=== PATIENT | female | born 1955 | race Caucasian/White ===

== ENCOUNTER 2019-01-11 08:17 | Day surgery (SDC) | payer OTHER ==
--- NOTE | 2019-01-04 10:37 | RAD REPORT ---
EXAM DESCRIPTION: RAD - Chest Pa And Lat (2 Views) - 01/04/2019 10:24 am CLINICAL HISTORY: preop Chest pain. COMPARISON: CHEST PA AND LAT 2 VIEW dated 08/26/2015; CHEST PA AND LAT 2 VIEW dated 06/29/2008; CHEST SINGLE VIEW dated 01/02/2008 FINDINGS: Prominent emphysema is present. No focal infiltrate is seen. The heart is normal in size. No displaced fractures. Moderate S-shaped scoliosis of the thoracolumbar spine. IMPRESSION: Prominent COPD.
[2019-01-04 11:20] LABS: BUN Blood Urea Nitrogen 9 mg/dL (7-18); Bicarbonate 31 mmol/L (21-32); Glucose Level 89 mg/dL (74-106); Potassium 4.1 mmol/L (3.5-5.1); Sodium Level 139 mmol/L (136-145)
[2019-01-04 11:28] LABS: Absolute Lymphocytes (CBC) 2.6 K/uL (0.7-4.9); Absolute Monocytes 0.7 K/uL (0.1-1.3); Absolute Neutrophil 4.1 K/uL (1.8-8.0); Eosinophils % 1.5 % (0-4.4); Hematocrit 48.9 % (36.0-45.0); Lymphocytes % 34.2 % (15.3-44.8); MPV 10.8 fL (7.6-11.3); Monocytes % 9.1 % (3.3-12.3); Protime INR 0.94; RBC Red Blood Cell Count 5.32 M/uL (3.86-4.86)
--- NOTE | 2019-01-04 16:45 | EKG ---
Test Date: 2019-01-04 Test Time: 10:10:58 Public Relations Associate: JACKSON MEASUREMENT RESULTS: Intervals: Rate: 76 OK: 150 QRSD: 78 QT: 378 QTc: 425 [place]: P: 75 OK: 150 QRS: 75 T: 73 INTERPRETIVE STATEMENTS: Normal sinus rhythm Normal ECG Compared to ECG 05/29/2017 09:26:02 No significant changes Electronically Signed On 01-04-19 16:42:50 CDT by Nick Gonzalez
[2019-01-11] MEDS ORDERED: CEFAZOLIN/SWI 1gm 1 GM/10 ML SYR ONE (08:40)
[2019-01-11] MEDS ORDERED: Ringers Lactate 1,000 ML IV ONE (08:40)
[2019-01-11] MEDS ORDERED: FENTANYL CITR 100 MCG/2 ML ONE ×4 (09:16→10:19)
[2019-01-11] MEDS ORDERED: PROPOFOL 200 MG/20 ML VIAL IV ONE ×2 (09:16→09:57)
[2019-01-11] MEDS ORDERED: MIDAZOLAM HCL 2 MG/2 ML INJ ONE ×2 (09:16→09:57)
[2019-01-11] MEDS ORDERED: LIDOCAINE 2% MPF 5 ML VIAL ONE (09:16)
[2019-01-11] MEDS ORDERED: BUPIVACAINE 0.25% PF 10 ML VIAL ONE (09:28)
--- OUTSIDE RECORDS SUMMARY | 2019-01-11 09:37 | XMS REPORT | Clinical Summary ---
:1955 Author Organization [facility] Address [address] [place] [id number] Care Team Providers Name Role Phone Saulo Adams PA-C Primary Care Provider Allergies Active Allergy Reactions Severity Noted Date Comments Tetracycline Rash Low 08/23/2018 Medications Medication Sig Dispensed Refills Start Date End Date Status megestrol (MEGACE) 20 MG Take 20 mg by 0 Active tablet mouth daily. acetaminophen-codeine Take 1 tablet by 0 Active (TYLENOL WITH CODEINE mouth every 4 #3) 300-30 mg per tablet (four) hours as needed for moderate pain. baclofen (LIORESAL) 10 Take 10 mg by 0 Active MG tablet mouth 3 (three) times a day. dexlansoprazole Take by mouth. 0 Active (DEXILANT ORAL) amitriptyline (ELAVIL) Take 100 mg by 0 Active 100 MG tablet mouth nightly. Active Problems Problem Noted Date Spondylosis of lumbar spine 08/23/2018 Other idiopathic scoliosis, thoracolumbar region 08/23/2018 Arthrodesis status 08/23/2018 Mid back pain 08/23/2018 Encounters Date Type Specialty Care Team Description 08/23/2018 Office Visit Orthopedic Surgery Frantz Velasquez Spondylosis of lumbar spine (Primary Dx); MD Conor Other idiopathic scoliosis, thoracolumbar region; Arthrodesis status; Mid back pain after 01/10/2018 Social History Tobacco Use Types Packs/Day Years Used Date Current Every Day Smoker Cigarettes 1 15 Smokeless Tobacco: Current User Comments: OFF AND ON FOR YEARS Alcohol Use Drinks/Week oz/Week Comments No Sex Assigned at Date Recorded Not on file Job Start Date Occupation Industry Not on file Not on file Not on file Travel History Travel Start Travel End No recent travel history available. 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 SYSTEM ENGINEER Pulse - - Temperature - - Respiratory Rate - - Oxygen Saturation - - Inhaled Oxygen Concentration - - Weight 45.4 kg (100 lb) 08/23/2018 1:20 PM LOGISTICS SYSTEM ENGINEER Height 162.6 cm (5' 4") 08/23/2018 1:20 PM LOGISTICS SYSTEM ENGINEER Body Mass Index 17.16 08/23/2018 1:20 PM LOGISTICS SYSTEM ENGINEER Plan of Treatment Health Maintenance Due Date Last Done Comments BREAST CANCER SCREENING 2007 COLON CANCER SCREENING 2007 SHINGLES VACCINES (#1) 2007 INFLUENZA VACCINE 03/14/2019 Procedures Procedure Name Priority Date/Time Associated Diagnosis Comments XR SPINE SCOLIOSIS Routine 08/23/2018 1:56 PM Mid back pain Results for this 2-3 VIEWS LOGISTICS SYSTEM ENGINEER procedure are in the results section. after 01/10/2018 Results XR Spine Scol[place]os 2-3 Views (08/23/2018 1:56 PM LOGISTICS SYSTEM ENGINEER) Specimen Narrative Performed At Standing AP and lateral x-rays of the spine for scoliosis reveals a 44 [facility] degree left curve from T9- L2.Specific vertebral segments in the lumbar spine are difficult to evaluate, with the possibility that there may be only 4 nonrib-bearing segments.There appears to been a fusion at the lower 2 levels and there is a slight listhesis at the third level, seen on the lateral as well as the AP view. Performing Organization Address City/State/Zipcode Phone Number [facility] [address] [place] [address] after 01/10/2018 Advance Directives Patient has advance care planning documents on file. For more information, please contact:Alex [id number] [place] [address]
[2019-01-11] MEDS ORDERED: ONDANSETRON 4 MG/2 ML VIAL ONE (09:57)
[2019-01-11] MEDS ORDERED: LIDOCAINE 1% MPF 5 ML VIAL ONE (09:57)
--- NOTE | 2019-01-11 10:38 | P.BOP ---
Preoperative diagnosis: right carpal tunnel syndrome, right thumb trigger digit Postoperative diagnosis: same Primary procedure: right carpal tunnel release Secondary procedure: right thumb A1 yee release [place]: NONE,NONE Estimated blood loss: <5 cc Specimen: none Findings: see dictation Anesthesia: General Complications: None Implants: none Fluids & blood products: per anesthesia record; TT: 30 mins @ 250 mmHg Transferred to: Recovery Room Condition: Good
[2019-01-11] MEDS: HYDROMORPHONE HCL 1 MG/ML INJ ONE ×2 (10:57→11:07)
[2019-01-11] MEDS ORDERED: PROMETHAZINE 25 MG/ML VIAL ONE (11:08)
[2019-01-11] MEDS: HYDROMORPHONE HCL 2 MG/ML inj ONE ×4 (11:12→11:27)
[2019-01-11] MEDS ORDERED: CODEINE 30MG/APAP 300MG TAB ONE (12:04)
--- NOTE | 2019-01-12 00:56 | OP ---
Date of Procedure: 01/11/2019 Surgeon: Sony Cruz MD Preoperative Diagnoses: 1.Right hand carpal tunnel syndrome. 2.Right thumb trigger digit. Postoperative Diagnoses: 1.Right hand carpal tunnel syndrome. 2.Right thumb trigger digit. Procedure Performed: 1.Right carpal tunnel release. 2.Right thumb A1 yee release. Anesthesia: General LMA. Fluids: Per Anesthesia record. Tourniquet Time: 30 minutes at 250 mmHg. Complications: None. Implants: None. Indication For Procedure: Arti is a 63-year-old female presented to my clinic with signs and sympto ms as well as EMG findings consistent with a carpal tunnel syndrome as well as trigger finger. The p atient failed conservative treatment measures including night splints as well as corticosteroid injec tions of her trigger thumb. I discussed with the patient at length risks and benefits associated wit h operative and nonoperative treatment. She expressed understanding and elected to proceed with oper ative treatment. Description Of Procedure: After informed consent was obtained, the patient was identified in the pre operative holding area. The right upper extremity was marked. The patient was then brought back to the operating room, transferred to the operating table in a supine fashion, and placed under general LMA anesthesia. The right upper extremity was then prepped and draped in usual sterile fashion. A t zachary-out was initiated. The correct patient and procedure were confirmed and identified. The patient did receive her preoperative prophylactic antibiotics. The right upper extremity was then exsanguin ated using an Esmarch and the tourniquet was inflated to 250 mmHg. Attention was first taken to the carpal tunnel. Proximally, a 3 cm longitudinal incision was made just ulnar to the thenar crease ove r the volar head. Dissection was then taken down to palmar fascia. A [place] elevator was then placed just deep to the palmar fascia and a 15 blade was then used to release the palmar fascia in distal t o proximal fashion. The [place] elevator was used to protect the median nerve at all times and transve rse carpal ligament was released using a 15 blade again with a [place] elevator protecting the median n erve. Any remaining fascial bands were then released using Metzenbaum scissors with the tips pointed superficially to avoid any trauma of the median nerve. Once this was complete, release of the roach r fascia and transverse carpal ligament was performed. The wound was then irrigated thoroughly with normal saline. Next, attention was taken to the trigger thumb. A 1 cm incision was made just over t he flexion crease of the thumb. Dissection was then taken down to the A1 yee which was identified and care was taken to avoid any significant retraction of the digital nerves. The A1 yee was the n released using a 15 blade with a significant amount of synovial fluid expressed after release of th e flexor tendon sheath. A complete release was performed and the flexor tendon was brought out throu gh the incision and there was full excursion of the tendon without any triggering. The wounds were t hen irrigated thoroughly with normal saline and approximated using a 4-0 Prolene. Sterile dressings were applied. Tourniquet was let down. The patient was awakened and transferred to PACU in stable c ondition. Postoperative Plan: The patient will follow up in clinic for a wound check and suture removal in ronnie roximately 7 to 10 days. CM/JAIME Voice ID: [id number] Report ID: [id number]
== END 2019-01-11 12:30 | disposition home or self-care (01) ==
LOC: OR 08:17
PROVIDERS: ATTEND Orthopaedic Surgery Sports Medicine
PROC: 0LN70ZZ Release Right Hand Tendon, Open Approach (ICD-10-PCS; principal; 2019-01-11 10:00)
PROC: 01N50ZZ Release Median Nerve, Open Approach (ICD-10-PCS; 2019-01-11 10:00)
DX: G56.01 Carpal tunnel syndrome, right upper limb (principal); M65.311 Trigger thumb, right thumb; K21.9 Gastro-esophageal reflux disease without esophagitis; F17.210 Nicotine dependence, cigarettes, uncomplicated
CPT/HCPCS: 64721; 26055; 93005; 85025; 80048; 36415; 85610; 85730; 71046; J2704; J2550; J2250; J1170 ×2; J3010 ×3; J0690; J2405

== ENCOUNTER 2019-06-07 06:25 | Day surgery (SDC) | payer OTHER ==
[2019-06-03 10:49] LABS: Absolute Lymphocytes (CBC) 2.3 K/uL (0.7-4.9); Basophils % 1.1 % (0-1.3); Hematocrit 43.7 % (36.0-45.0); Lymphocytes % 22.6 % (15.3-44.8); MPV 10.6 fL (7.6-11.3); RBC Red Blood Cell Count 4.68 M/uL (3.86-4.86)
--- NOTE | 2019-06-03 11:01 | RAD REPORT ---
EXAM DESCRIPTION: Jose Angel Munguia (2 Views)06/03/2019 10:25 am CLINICAL HISTORY: Preop for carpal tunnel surgery. COPD COMPARISON: December 2018 FINDINGS: Lungs are markedly hyperaerated. Moderate to marked scoliosis involves the thoracolumbar s pine The lungs appear clear of acute infiltrate. The heart is normal size IMPRESSION: Marked COPD without visualization acute abnormality
[2019-06-03 11:04] LABS: Potassium 4.4 mmol/L (3.5-5.1)
[2019-06-03 11:26] LABS: Protime INR 0.9
[2019-06-07] MEDS ORDERED: CEFAZOLIN/SWI 1gm 1 GM/10 ML SYR ONE (06:36)
[2019-06-07] MEDS ORDERED: Ringers Lactate 1,000 ML IV ONE (06:36)
[2019-06-07] MEDS ORDERED: PROPOFOL 200 MG/20 ML VIAL IV ONE (07:00)
[2019-06-07] MEDS ORDERED: FENTANYL CITR 100 MCG/2 ML ONE (07:00)
[2019-06-07] MEDS ORDERED: LIDOCAINE 2% MPF 5 ML VIAL ONE (07:01)
[2019-06-07] MEDS ORDERED: MIDAZOLAM HCL 2 MG/2 ML INJ ONE (07:01)
[2019-06-07] MEDS ORDERED: ONDANSETRON 4 MG/2 ML VIAL ONE (07:04)
[2019-06-07] MEDS ORDERED: BUPIVACAINE 0.25% PF 10 ML VIAL ONE (07:11)
--- NOTE | 2019-06-07 08:14 | P.BOP ---
Preoperative diagnosis: left carpal tunnel syndrome Postoperative diagnosis: same Primary procedure: left open carpal tunnel release Tile Mechanic: NONE,NONE Estimated blood loss: <5 cc Specimen: none Findings: see dictation Anesthesia: General Complications: None Implants: none Fluids & blood products: per anesthesia record; TT: 16 mins @ 250 mmHg Transferred to: Recovery Room Condition: Good
[2019-06-07] MEDS ORDERED: GLYCOPYRROLATE 0.2 MG/ML SYR ONE ×2 (08:20)
[2019-06-07] MEDS: HYDROMORPHONE HCL 1 MG/ML INJ ONE ×2 (08:23→08:28)
[2019-06-07 08:52] VITALS: O2SAT 96
[2019-06-07] MEDS ORDERED: CODEINE 30MG/APAP 300MG TAB ONE (09:15)
[2019-06-07 09:39] VITALS: TEMP 98.8
[2019-06-07 09:40] VITALS: BP 122/68
--- NOTE | 2019-06-07 20:44 | OP ---
Date of Procedure: 06/07/2019 Surgeon: Sony Cruz MD Preoperative Diagnosis: Left carpal tunnel syndrome. Postoperative Diagnosis: Left carpal tunnel syndrome. Procedure Performed: Left open carpal tunnel release. Anesthesia: General LMA. Fluids: Per Anesthesia record. Estimated Blood Loss: Less than 5 mL. Tourniquet Time: 16 minutes, 250 mmHg. Complications: None. Indication For Procedure: Arti is a 64-year-old female who presented to my clinic with signs, sympt oms, and EMG nerve conduction study findings consistent with left carpal tunnel syndrome. She has fa iled conservative treatment measures. Description Of Procedure: After informed consent was obtained, the patient was identified in the pre operative holding area. The left upper extremity was marked. Patient was then brought back to the o perating room, transferred to the operating table in supine fashion, and placed under general LMA ane sthesia. The left upper extremity was prepped and draped in usual sterile fashion. A time-out was i nitiated. The correct patient and procedure were confirmed and identified. Patient had received her preoperative prophylactic antibiotics. The left upper extremity was then exsanguinated using an Esm arch. Tourniquet was inflated to 250 mmHg. Approximately, a 3 cm longitudinal incision was made jus t ulnar to the thenar crease. Dissection was then taken down to the palmar fascia was identified. A [place] elevator was placed deep to the palmar fascia as well as the transverse carpal ligament to pro tect the median nerve at all times. A 15 blade was then used to release the transverse carpal ligame nt and palmar fascia, again protecting the median nerve with the [place] elevator. The ligament was re leased in a distal to proximal fashion under direct visualization. After complete release of the tra nsverse carpal ligament was performed, any remaining fascial bands were released using a blunt-tip Me bermanbaum with the tips pointed superficially. The wound was then irrigated thoroughly with normal sa line. The skin was approximated using a 5-0 Prolene. Sterile dressings were applied. The tournique t was let down. Patient was awakened and transferred to PACU in stable condition. Postoperative Plan: She will follow up in the clinic in 1 week for wound check and suture removal. She may begin working on range of motion exercises. CV/MODL Voice ID: [id number] Report ID: [id number]
== END 2019-06-07 09:43 | disposition home or self-care (01) ==
LOC: OR 06:25
PROVIDERS: ATTEND Orthopaedic Surgery Sports Medicine
PROC: 01N50ZZ Release Median Nerve, Open Approach (ICD-10-PCS; principal; 2019-06-07 07:30)
DX: G56.02 Carpal tunnel syndrome, left upper limb (principal); M13.811 Other specified arthritis, right shoulder; K21.9 Gastro-esophageal reflux disease without esophagitis; G47.00 Insomnia, unspecified; Z88.1 Allergy status to other antibiotic agents; F17.210 Nicotine dependence, cigarettes, uncomplicated; Z80.9 Family history of malignant neoplasm, unspecified; Z82.49 Family history of ischemic heart disease and other diseases of the circulatory system
CPT/HCPCS: 64721; 85025; 80048; 36415; 85610; 85730; 71046; J2704; J2250; J3010; J1170; J0690; J7120; J2405

== ENCOUNTER 2022-02-02 06:18 | Day surgery (SDC) | payer OTHER ==
--- NOTE | 2022-02-01 15:44 | RAD REPORT ---
EXAM DESCRIPTION: RAD - Chest Pa And Lat (2 Views) - 02/01/2022 3:28 pm CLINICAL HISTORY: Pre op pending mass removal COMPARISON: Chest Pa And Lat (2 Views) dated 06/03/2019; Chest Pa And Lat (2 Views) dated 01/04/2019; CHEST PA AND LAT 2 VIEW dated 08/26/2015; CHEST PA AND LAT 2 VIEW dated 06/29/2008 FINDINGS: Lines: None. Lungs: Emphysema. No superimposed acute process . Pleural: No significant pleural effusions or pneumothorax. Cardiac: The heart size is within normal limits. Bones: No acute fractures. Thoracolumbar scoliosis. Other: IMPRESSION: Emphysema without superimposed acute process identified.
[2022-02-01 16:04] LABS: Absolute Lymphocytes (CBC) 3.1 K/uL (0.7-4.9); Hematocrit 39.5 % (36.0-45.0); Lymphocytes % 28.1 % (15.3-44.8); MPV 10.1 fL (7.6-11.3); RBC Red Blood Cell Count 4.18 M/uL (3.86-4.86)
[2022-02-01 16:16] LABS: Potassium 3.9 mmol/L (3.5-5.1)
[2022-02-02] MEDS ORDERED: Ringers Lactate 1,000 ML IV ONE (06:39)
[2022-02-02] MEDS: CEFAZOLIN SODIUM 1 GM/VIAL ONE ×2 (06:47→07:25)
[2022-02-02] MEDS ORDERED: CELECOXIB 100 MG CAPSULE ONE (07:08)
[2022-02-02] MEDS ORDERED: ACETAMINOPHEN 500 MG TAB ONE (07:08)
[2022-02-02] MEDS ORDERED: propofoL 200 MG/20 ML VIAL IV ONE (07:10)
[2022-02-02] MEDS ORDERED: LIDOCAINE 2% MPF 5 ML VIAL ONE (07:11)
[2022-02-02] MEDS ORDERED: MIDAZOLAM HCL 2 MG/2 ML INJ ONE (07:11)
[2022-02-02] MEDS ORDERED: FENTANYL CITR 100 MCG/2 ML ONE (07:11)
[2022-02-02] MEDS ORDERED: dexAMETHasone 10 MG/ML VIAL ONE (07:11)
--- NOTE | 2022-02-02 07:19 | EKG ---
Test Date: 2022-02-01 Test Time: 15:10:55 Pharmaceutical Sales: KRISHAN MEASUREMENT RESULTS: Intervals: Rate: 78 CT: 164 QRSD: 72 QT: 368 QTc: 419 [place]: P: 78 CT: 164 QRS: 83 T: 82 INTERPRETIVE STATEMENTS: Normal sinus rhythm Normal ECG Compared to ECG 01/04/2019 10:10:58 No significant changes Electronically Signed On 02-02-22 07:17:24 CDT by Nick Gonzalez
--- NOTE | 2022-02-02 07:50 | P.BOP ---
Preoperative diagnosis: bilateral groin tender subQ mass, left infected Postoperative diagnosis: same Primary procedure: 1. Excisional biopsy of ulcerated Left groin subQ mass Secondary procedure: 2. Excisional biopsy of right groin subQ mass Estimated blood loss: <10cc Specimen: mass x 2 Findings: as above Anesthesia: General Complications: None Transferred to: Recovery Room Condition: Good
[2022-02-02] MEDS ORDERED: Mastisol Adhesive Liq ONE (07:52)
[2022-02-02] MEDS ORDERED: HYDROMORPHONE HCL 1 MG/ML INJ ONE (08:34)
[2022-02-02 09:27] VITALS: BP 137/59; O2SAT 97
[2022-02-02 09:28] VITALS: TEMP 96.7
--- NOTE | 2022-02-02 09:39 | OP ---
Date of Procedure: 02/02/2022 Surgeon: Galen Arias MD Preoperative Diagnosis: Bilateral groin tender subcutaneous masses, right and left with the left alexandro e being infected in the past and current ulceration. Postoperative Diagnosis: Bilateral groin tender subcutaneous mass, right and left with the left side being infected in the past and current ulceration. Procedures: 1.Excisional biopsy of ulcerated left groin tender subcutaneous mass. 2.Excisional biopsy of right groin tender subcutaneous mass. Estimated Blood Loss: Less than 10 mL. Specimen: Mass x2. Findings: As above. Anesthesia: General plus local. Indication: This is the case of a 66-year-old patient, who comes to us with bilateral groin masses, infected in the past and currently 1 of them has an ulceration. This is the best she can get it with the antibiotics treatment and also with preventing any damage to that area. She wants them excised. The area compromised a series of small masses present with ulceration, so we are going to remove th at in each side as a wedge. Benefits, alternatives, and risks of excision fully explained which incl ude, but not limited to infection, bleeding, damage to adjacent structures, anesthesia complication, recurrence, [place], and even . She also understands this may not relieve the symptoms. She might n eed more than one surgical intervention. The area of concern was marked by me and the patient in the holding room. Procedure In Detail: The patient was brought to the operating room, placed in supine position. Anes thesia was done without complication. Bilateral groin areas were prepped and draped in a sterile fas hion. Local anesthesia was applied. Each area was treated individually using the same technique whi ch consisted of wedge incision of the skin all the way down to subcutaneous tissue. Mass completely excised. The area was profusely irrigated. Hemostasis obtained. Then, we closed the area with 3-0 chromic in a subcuticular fashion and Steri-Strips on top. The area without ulceration was done firs t. The area with the ulceration was done second. Area was irrigated. No purulent discharge seen. Closure was the same way both sides. Specimen sent to the Pathology. The patient tolerated the proc edure well. The patient sent to Recovery in stable condition. Disposition: Home. Activity: As tolerated. No heavy lifting. Followup: Follow up in my office in 1 week, call for appointment at [phone]. Keep the area dry for 48 hours and then may shower, keep Steri-Strips intact. Medications: See orders HM/MODL Voice ID: [id number] Report ID: [id number]
== END 2022-02-02 09:18 | disposition home or self-care (01) ==
LOC: OR 06:18
PROVIDERS: ATTEND Surgery
PROC: 0YB50ZZ Excision of Right Inguinal Region, Open Approach (ICD-10-PCS; 2022-02-02)
PROC: 0YB60ZZ Excision of Left Inguinal Region, Open Approach (ICD-10-PCS; principal; 2022-02-02 07:30)
DX: L72.0 Epidermal cyst (principal); Z20.822 Contact with and (suspected) exposure to COVID-19
CPT/HCPCS: 93005; 85025; 80048; 36415; 88304; 71046; 11402 ×2; U0003; J2704; J2250; J3010; J1100; J1170; J7120; J0690

== ENCOUNTER 2022-10-24 09:08 | Day surgery (SDC) | payer OTHER ==
[2022-10-21 16:14] LABS: Absolute Lymphocytes (CBC) 2.8 K/uL (0.7-4.9); Hematocrit 39.6 % (36.0-45.0); Lymphocytes % 26.9 % (15.3-44.8); MCV 93.8 fL (80-100); MPV 10.1 fL (7.6-11.3); RBC Red Blood Cell Count 4.23 M/uL (3.86-4.86)
[2022-10-21 16:21] LABS: Potassium 3.9 mmol/L (3.5-5.1)
--- NOTE | 2022-10-21 20:39 | RAD REPORT ---
EXAM DESCRIPTION: [facility] ([facility] Views)10/21/2022 4:06 pm CLINICAL HISTORY: Pre op pending mass removal COMPARISON: Chest Pa And Lat (2 Views) dated 02/01/2022; Chest Pa And Lat (2 Views) dated 06/03/2019; Chest Pa And Lat (2 Views) dated 01/04/2019; CHEST PA AND LAT 2 VIEW dated 08/26/2015 TECHNIQUE: PA and lateral views of the chest. FINDINGS: The lungs are clear.Hyperlucency and hyperinflation with flattening of the diaphragmatic o cular bilaterally and diffuse interstitial coarsening, findings which are suggestive of COPD. Levocon vex thoracolumbar scoliosis. No pneumothorax or effusion. The cardiomediastinal contours are unremark able. IMPRESSION: No acute cardiopulmonary process. Stable findings as above.
[2022-10-24] MEDS ORDERED: CEFAZOLIN SODIUM 1 GM/VIAL ONE (09:34)
[2022-10-24] MEDS ORDERED: Ringers Lactate 1,000 ML IV ONE (09:34)
[2022-10-24] MEDS ORDERED: BUPIVACAINE 0.5% PF 10 ML VIAL ONE (10:27)
[2022-10-24] MEDS ORDERED: MIDAZOLAM HCL 2 MG/2 ML INJ ONE (10:28)
[2022-10-24] MEDS ORDERED: propofoL 200 MG/20 ML VIAL IV ONE (10:28)
[2022-10-24] MEDS ORDERED: FENTANYL CITR 100 MCG/2 ML ONE (10:28)
[2022-10-24] MEDS ORDERED: LIDOCAINE 2% MPF 5 ML VIAL ONE (10:28)
[2022-10-24] MEDS ORDERED: NS 0.9% VIAL 10 ML ONE (11:15)
[2022-10-24] MEDS ORDERED: KETOROLAC 30 MG/ML INJ ONE (11:32)
[2022-10-24] MEDS ORDERED: dexAMETHasone 10 MG/ML VIAL ONE (11:32)
[2022-10-24] MEDS ORDERED: ONDANSETRON 4 MG/2 ML VIAL ONE (11:34)
--- NOTE | 2022-10-24 11:50 | P.BOP ---
Preoperative diagnosis: Left lower back intramuscular mass Postoperative diagnosis: same Primary procedure: Excisional biopsy of Left lower back intramuscular mass 3x3cm Estimated blood loss: <10cc Specimen: mass Findings: hard mass attached to fascia and partially between muscle fibers Anesthesia: General Complications: None Transferred to: Recovery Room Condition: Good
[2022-10-24 12:52] VITALS: BP 139/65; TEMP 97.3; O2SAT 98
--- NOTE | 2022-10-24 13:12 | EKG ---
Test Date: 2022-10-21 Test Time: 15:40:22 Cash Management Specialist: KRISHAN MEASUREMENT RESULTS: Intervals: Rate: 82 NH: 156 QRSD: 76 QT: 356 QTc: 415 [place]: P: 80 NH: 156 QRS: 81 T: 81 INTERPRETIVE STATEMENTS: Normal sinus rhythm Possible Left atrial enlargement Borderline ECG Compared to ECG 02/01/2022 15:10:55 No significant changes Electronically Signed On 10-24-22 13:06:42 CDT by Rodríguez Joel
[2022-10-24] MEDS ORDERED: TAMSULOSIN 0.4 MG SR CAP ONE (14:34)
--- NOTE | 2022-10-24 15:09 | OP ---
Date of Procedure: 10/24/2022 Surgeon: Galen Arias MD Preoperative Diagnosis: Left lower back intramuscular mass. Postoperative Diagnosis: Left lower back intramuscular mass. Procedure: Excisional biopsy of left lower back intramuscular mass, 3 x 3 cm. Estimated Blood Loss: Less than 10 mL. Specimen: Mass. Findings: The patient has a hard mass attached to the fascia, partially between muscle fibers. Etio logy of that is unknown, completely excised. It is asymmetrical in shape. Complications: None. Anesthesia: General plus local. Indication: This is the case of a 67-year-old patient, who comes with a very hard mass on the left l ower back, feels attached to the muscle. It is giving pain and discomfort. It is getting bigger. S he wants that excised. The benefits, alternatives, and risks of excision fully explained, which incl ude, but not limited to infection, bleeding, damage to adjacent structures, anesthesia complication, recurrence, [place], and even . She also understands this may not relieve any symptoms. She might n eed more than one surgical intervention. She understood, signed a consent. Procedure In Detail: The patient was brought to the operating room, placed in supine position. Anes thesia was without complication. The patient was placed in lateral decubitus position with proper pr otection. The area of concern was previously marked by me and the patient in the holding room. I pr oceeded to make a wedge incision in that area and the incision carried all the way down to the deep s ubcutaneous tissue. We noticed that mass is asymmetrical in shape, so we were trying to dissect away from the mass to make sure we bring the mass in 1 unit. The mass was attached to the fascia of the muscle and was partially between muscle fibers. Muscle fibers could be splayed and the mass comes ou t. The specimen sent to the pathologist. Then, we proceeded to close the area with a combination of 3-0 chromic and then nylon after hemostasis and local anesthesia was applied and after irrigation. The patient tolerated the procedure well. The patient was sent to recovery in stable condition. ARCHANA/JAIME Voice ID: [id number] Report ID: [id number]
--- NOTE | 2022-10-24 15:10 | DS ---
Date of Discharge: 10/24/2022 Diagnosis: Left lower back intramuscular mass. Procedure: Excisional biopsy of left lower back intramuscular mass. Disposition: Home. Activity: As tolerated. No heavy lifting. Plan: Follow up in my office in 1 week. Call for appointment at [phone]. Keep area dry for 48 oscar rs, then may shower. Keep Steri-Strips intact. ARCHANA/JAIME Voice ID: [id number] Report ID: [id number]
== END 2022-10-24 13:15 | disposition home or self-care (01) ==
LOC: OR 09:08
PROVIDERS: ATTEND Surgery
PROC: 0JB70ZZ Excision of Back Subcutaneous Tissue and Fascia, Open Approach (ICD-10-PCS; principal; 2022-10-24 11:15)
DX: E83.59 Other disorders of calcium metabolism (principal); R22.2 Localized swelling, mass and lump, trunk
CPT/HCPCS: 36415; 71046; 80048; 85025; 88305; 88311; 93005; A4216; J0690; J1100; J2001; J2250; J2405; J2704; J3010; J7120